=== PATIENT | female | born 1960 | race Caucasian/White ===

== ENCOUNTER 2021-02-05 04:35 | Observation (INO) | payer OTHER, SELFPAY ==
[~2021-02-05] VITALS: Ht 162.6 cm; Wt 78.0 kg
[2021-02-05 04:42] VITALS: BP 155/85
--- NOTE | 2021-02-05 04:42 | NUR ---
TO BED AMBULATORY
--- NOTE | 2021-02-05 04:50 | NUR ---
60 Y/O F BIB SELF C/O CRUSHING/STABBING CHEST PAIN 5/10 RADIATING TO NECK UP TO THE R EAR. PT AAOX4 AND AMBULATORY. PT DENIES ANY OTHER PAIN OR DISCOMFORT. PT HOOKED TO MONITORS, VS STABLE. WILL CONTINUE TO MONITOR. PMH: LUNG CA NKA
[2021-02-05] MEDS ORDERED: ASPIRIN 325 MG TAB PO ONE (05:00)
--- NOTE | 2021-02-05 05:00 | NUR ---
ERMD AT BEDSIDE
[2021-02-05 05:21] LABS: BASOPHILS % (AUTO) 0.4 % (0.0-2.0); EOSINOPHILS # (AUTO) 0.2 K/uL (0-0.4); EOSINOPHILS % (AUTO) 3.3 % (0.0-4.0); HEMATOCRIT 40.5 % (36-48); HEMOGLOBIN 13.6 g/dL (12.0-16.0); LYMPHOCYTES % (AUTO) 14.2 % (20.5-51.1); MEAN CORPUSCULAR HEMOGLOBIN 30 pg (27-31); MEAN CORPUSCULAR HGB CONC 34 g/dL (33-37); MEAN CORPUSCULAR VOLUME 90.4 fL (80-94); MONOCYTES # (AUTO) 0.7 K/uL (0.8-1.0); MONOCYTES % (AUTO) 9.8 % (1.7-9.3); NEUTROPHILS % (AUTO) 72.3 % (42.2-75.2); PLATELET COUNT (AUTO) 269 K/uL (140-450); RED BLOOD CELL COUNT(AUTO) 4.48 MIL/uL (4.20-5.40); RED CELL DISTRIBUTION WIDTH 14.3 % (11.6-13.7); WHITE BLOOD COUNT (AUTO) 6.9 K/uL (4.8-10.8)
[2021-02-05] MEDS ORDERED: NITROGLYCERIN 0.4 MG TAB SL ONE (05:25)
[2021-02-05 05:40] LABS: PROTHROMBIN TIME 9.3 secs (10.8-13.4)
[2021-02-05 05:43] LABS: ALBUMIN 3.6 g/dL (3.4-5.0); ANION GAP 9.7 (8-16); CREATININE 0.8 mg/dL (0.6-1.3); POTASSIUM 3.7 mmol/L (3.5-5.1); TOTAL BILIRUBIN 0.2 mg/dL (0.0-1.0)
[2021-02-05] MEDS ORDERED: HYDROCORTISONE NA SUCC 100 MG/2 ML VIAL IV ONE (05:50)
[2021-02-05] MEDS ORDERED: diphenhydrAMINE 50 MG/ML VIAL IVP ONE (05:50)
--- NOTE | 2021-02-05 06:50 | NUR ---
US AT BEDSIDE
--- NOTE | 2021-02-05 07:09 | NUR ---
ENDORSED TO DAY SHIFT NURSE FOR CONTINUITY OF CARE
[2021-02-05] MEDS ORDERED: OSIM40TA PO (07:23)
--- NOTE | 2021-02-05 07:32 | NUR ---
ANALISA SWAB COLLECTED AND SENT TO LAB.
[2021-02-05] MEDS ORDERED: LORazepam 1 MG TAB PO PRN (08:40)
[2021-02-05] MEDS ORDERED: KCL 20 MEQ/WATER INJ PREMIX 200 ML IV PRN (08:40)
[2021-02-05] MEDS ORDERED: MAGNESIUM OXIDE 400 MG TAB PO PRN (08:40)
[2021-02-05] MEDS ORDERED: MAG SULF 2000 MG/WATER PREMIX 50 ML IV PRN (08:40)
[2021-02-05] MEDS ORDERED: ACETAMINOPHEN 325 MG TAB PO PRN (08:40)
[2021-02-05] MEDS ORDERED: POTASSIUM CHLORIDE 10 MEQ TABER PO PRN (08:40)
[2021-02-05] MEDS ORDERED: MORPHINE SULFATE 4 MG/ML SYR IVP PRN (08:40)
[2021-02-05] MEDS ORDERED: ONDANSETRON 4 MG/2 ML VIAL IVP PRN (08:40)
[2021-02-05] MEDS ORDERED: HYDROcodone/APAP 5/325 MG 1 TAB TAB PO PRN (08:40)
[2021-02-05] MEDS: DOCUSATE SODIUM 100 MG GELCAP PO SCH (09:16)
--- NOTE | 2021-02-05 12:40 | NUR ---
PT STATED SHE WOULD LIKE TO LEAVE AMA, PT STATES "I WANT TO SPEAK WITH THE DR BECAUSE I WANT TO GO HOME, I FEEL MORE SICK BEING HERE AND I WANT TO BE COMFORTABLE AT HOME. CHARGE NURSE MADE AWARE.
[2021-02-05 13:15] VITALS: BP 127/65
--- NOTE | 2021-02-05 13:15 | NUR ---
RECEIVED REPORT FROM ER NURSE FOR CONTINUITY OF CARE. PATIENT BROUGHT TO THE FLOOR BY MAXIME, PATIENT DENIES PAIN OR DISCOMFORT AT THIS TIME. V/S CHECKED. RESPIRATORY EVEN UNLABORED ON ROOM AIR. ON TELE MONITOR. IV TO LEFT AC 20G SL. SKIN INTACT, DRY AND WARM TO TOUCH. ORIENT PATIENT TO THE ROOM, CALL LIGHT AND HOSPITAL ENVIRONMENT. MRSA NARES SWAB COLLECTED. SAFETY MEASURES IN PLACE, WILL CONTINUE TO MONITOR.
--- NOTE | 2021-02-05 13:15 | NUR ---
Patient will be admitted to care of DAVID RONQUILLO. Admited to TELEMETRY. Will go to room 119B. Belongings list completed. Report to CECILIA BAKER.
--- NOTE | 2021-02-05 13:25 | NUR ---
WATER, APPLE JUICE AND SANDWICH PROVIDED. PATIENT DENIES CHEST PAIN AT THIS TIME. WILL CONTINUE TO MONITOR.
--- NOTE | 2021-02-05 15:45 | NUR ---
DC PLANN[age] YRS OLD FEMALE PATIENT WAS ADMITTED FROM HOME WITH ADX OF CHEST PAIN R/O ACS. PT HAS A HX OF LUNG CA. CXR SHOWED MILDLY PROMINENT INTERSTITIAL MARKINGS. CT CHSE ABD/PELVIS SHOWED NO PE, NO ACUTE CARDIOPULMONARY DISEASE LYTIC LESION IN THE RIGHT ACETABULUM MEDIALLY. RAPID COVID TEST NEGATIVE. ADMINISTER ACS PROTOCOL AND CONTINUED HOME MEDS. CONSULTED WITH DATABASE REPORT WRITER. DC PLAN TO GO HOME WHEN STABLE CM TO FOLLOW.
[2021-02-05 16:00] VITALS: BP 114/60
--- NOTE | 2021-02-05 18:12 | NUR ---
PATIENT SITTING AT THE SIDE OF BED, HAVING DINNER, DENIES PAIN OR DISCOMFORT AT THIS TIME. WILL CONTINUE TO MONITOR.
--- NOTE | 2021-02-05 19:30 | NUR ---
ENDORSED PATIENT TO DYNAMICS AX TECHNICAL ARCHITECT RN FOR CONTINUITY OF CARE, PATIENT IN STABLE CONDITION DENIES ANY PAIN.
--- NOTE | 2021-02-05 19:30 | NUR ---
PT AWAKE ALERT ORIENTED X4 SITTING UP IN BED. AMBULATORY. NSR 80-90S, LUNGS CLEAR TO UPPER LOBES, DIMINISHED @ BASES, DENIES CP/SOB. ABD SOFT, NON DISTENDED. ACTIVE BOWEL SOUNDS. VOIDS IN BATHROOM, URINE NOTED. SKIN INTACT. IV TO L AC 20 G IVF INFUSING, PATENT. BED LOCKED IN LOWEST POSITION. SAFETY PRECAUTIONS IN PLACE. WILL CONTINUE TO OBSERVE.
[2021-02-05 20:00] VITALS: BP 100/55
[2021-02-06] VITALS: BP 110/81
--- NOTE | 2021-02-06 00:30 | NUR ---
PT HAS EYES CLOSED; AROUSABLE. NO ACUTE DISTRESS NOTED. WILL CONTINUE TO OBSERVE.
[2021-02-06 04:00] VITALS: BP 108/60
--- NOTE | 2021-02-06 05:35 | NUR ---
PT AROUSABLE, DENIES PAIN. NO ACUTE DISTRESS WILL CONTINUE TO OBSERVE
[2021-02-06 05:40] LABS: ALBUMIN 3.3 g/dL (3.4-5.0); ANION GAP 7.7 (8-16); CARBON DIOXIDE 30.8 mmol/L (21-32); CHOL/HDL RATIO 4.2 (1-4.5); CREATININE 0.7 mg/dL (0.6-1.3); MAGNESIUM 2.2 mg/dL (1.8-2.4); POTASSIUM 3.5 mmol/L (3.5-5.1); TOTAL BILIRUBIN 0.3 mg/dL (0.0-1.0)
[2021-02-06 06:08] LABS: BASOPHILS % (AUTO) 0.4 % (0.0-2.0); EOSINOPHILS # (AUTO) 0.2 K/uL (0-0.4); EOSINOPHILS % (AUTO) 4.1 % (0.0-4.0); HEMATOCRIT 39.1 % (36-48); LYMPHOCYTES # (AUTO) 1.1 K/uL (2.5-16.5); LYMPHOCYTES % (AUTO) 23.8 % (20.5-51.1); MEAN CORPUSCULAR HEMOGLOBIN 30 pg (27-31); MEAN CORPUSCULAR HGB CONC 33 g/dL (33-37); MEAN CORPUSCULAR VOLUME 91.3 fL (80-94); MONOCYTES # (AUTO) 0.5 K/uL (0.8-1.0); MONOCYTES % (AUTO) 11.8 % (1.7-9.3); NEUTROPHILS # (AUTO) 2.8 K/uL (1.8-7.7); NEUTROPHILS % (AUTO) 59.9 % (42.2-75.2); PLATELET COUNT (AUTO) 263 K/uL (140-450); RED BLOOD CELL COUNT(AUTO) 4.28 MIL/uL (4.20-5.40); RED CELL DISTRIBUTION WIDTH 14.4 % (11.6-13.7); WHITE BLOOD COUNT (AUTO) 4.6 K/uL (4.8-10.8)
--- NOTE | 2021-02-06 07:30 | NUR ---
REPORT GIVEN TO DAY SHIFT FOR CONTINUITY OF CARE.
--- NOTE | 2021-02-06 07:35 | NUR ---
RECEIVED PATIENT FROM NIGHT NURSE. PATIENT IN BED AWAKE AND ALERT. RESP EVEN AND UNLABORED ON ROOM AIR. DENIED OF PAIN AT THIS TIME. LAC 20G SL. PLAN OF CARE DISCUSSED. PATIENT VERBALIZED UNDERSTANDING. CALL LIGHT WITHIN REACH. WILL CONTINUE TO MONITOR.
[2021-02-06 08:00] VITALS: BP 105/46
--- NOTE | 2021-02-06 08:46 | NUR ---
PATIENT HAS BEEN SCREENED AND CATEGORIZED LOW NUTRITION RISK. PATIENT WILL BE SEEN WITHIN 7 DAYS OF ADMISSION. 02/11/[address]
[2021-02-06] MEDS: DOCUSATE SODIUM 100 MG GELCAP PO SCH (09:07)
--- NOTE | 2021-02-06 09:10 | NUR ---
PATIENT BY BEDSIDE EATING BREAKFAST. MORNING ROUTINE MEDICATIONS GIVEN. PATIENT TOLERATED WELL. RESP EVEN AND UNLABORED ON ROOM AIR. DENIED OF PAIN AT THIS TIME. LAC 20G INTACT AND PATENT. ENCOURAGED TO USE CALL LIGHT FOR ASSIST. PATIENT VERBALIZED UNDERSTANDING. WILL CONTINUE TO MONITOR
--- NOTE | 2021-02-06 10:30 | NUR ---
SOCIAL WORK NOTE: Patient's Orientation Unable To Assess Information Provided By DARIA TAMAYO - DAUGHTER Comments SW WAS UNABLE TO MEET PATIENT AT BEDSIDE. SW COMPLETED ASSESSMENT WITH PATIENT'S DAUGHTER. Chain Repairer, Realtionship and Phone Number DARIA TAMAYO DAUGHTER [phone] Healthcare Power of [employer] [place] No Does Patient Have a POLST No Identifying Problems No Social Work Triggers Is A Social Work Consult Needed No Mandate Report Filed No Explanation Of Identifying Problems PATIENT IS A 60-YEAR-OLD FEMALE ADMITTED FOR CHEST PAIN AND R/O ACS. PATIENT HAS PMHX OF LUNG CANCER, AND METASTASIS TO BONE. DAUGHTER REPORTED NO HX OF MENTAL HEALTH OR SUBSTANCE ABUSE. Admitted From Home Pre-Admission Level Of Functioning Status Independent/Ambulatory Prior Resources/Services Used In Last 12 Months No Prior Resources Used Prior DME No Prior DME Used Dialysis Comments N/A Living Situation Lives With Family House Patient Had Caregiver No Home Support No Caregiver Issues Financial Issues No Known Financial Issue Referral To The Financial Counselor Needed No Factors/Needs No D/C Needs Identified Pt/Rep Participated In Discharge Plan Yes Patient/Family Agress With Discharge Plan Yes Discharge Plan Comments TENTATIVE DISCHARGE PLAN IS FOR PATIENT TO RETURN HOME. DC Plan Status Initiated
--- NOTE | 2021-02-06 11:35 | NUR ---
PATIENT SITTING BY BEDSIDE WATCHING TV. RESP EVEN AND UNLABORED ON [place] AIR. DENIED OF PAIN AT THIS TIME. CALL LIGHT WITHIN REACH. WILL CONTINUE TO MONITOR.
[2021-02-06 12:00] VITALS: BP 104/72
--- NOTE | 2021-02-06 13:35 | NUR ---
PATIENT IN BED SLEEPING, CHEST NOTED RISING. CALL LIGHT WITHIN REACH. WILL CONTINUE TO MONITOR.
[2021-02-06 14:46] VITALS: BP 104/72
--- NOTE | 2021-02-06 15:31 | NUR ---
PATIENT LEFT DISCHARGED HOME WITH FAMILY. DISCHARGE INSTRUCTIONS PROVIDED, PATIENT VERBALIZED UNDERSTANDING. FLU VACC UP TO DATE. PATIENT LEFT WITH ALL PERSONAL BELONGINGS. PATIENT LEFT IN STABLE CONDITION.
== END 2021-02-06 15:30 | disposition home or self-care (01) ==
LOC: MED 04:35 → MTU 08:36 → INTOOBSV 08:36 → MTU 13:05
PROVIDERS: ADMIT Hospitalist; ATTEND Hospitalist
DX: R07.89 Other chest pain (principal); Z20.822 Contact with and (suspected) exposure to COVID-19; C34.90 Malignant neoplasm of unspecified part of unspecified bronchus or lung; C79.51 Secondary malignant neoplasm of bone; R03.0 Elevated blood-pressure reading, without diagnosis of hypertension; Z90.710 Acquired absence of both cervix and uterus; Z92.21 Personal history of antineoplastic chemotherapy; Z92.3 Personal history of irradiation
CPT/HCPCS: 36415; 71045; 71275; 74174; 80053; 80061; 83036; 83735; 84484; 85025; 85610; 85730; 87081; 87426; 93005; 93880; 96372; 96374; 96375; 99291; G0378; J1200; J1644; J1720; Q9967

== ENCOUNTER 2022-01-23 09:11 | Day surgery (SDC) | payer OTHER, SELFPAY ==
[~2022-01-23] VITALS: Ht 162.6 cm; Wt 72.6 kg
[~2022-01-23 09:11] MED LIST: OSIM40TA PO
[2022-01-23] MEDS ORDERED: MIDAZOLAM 5 MG/5 ML VIAL ONE (10:03)
[2022-01-23] MEDS ORDERED: diphenhydrAMINE 50 MG/ML VIAL ONE (10:03)
[2022-01-23] MEDS ORDERED: fentaNYL citrate 0.05 MG/ML VIAL ONE ×2 (10:03→10:16)
[2022-01-23] MEDS ORDERED: LIDOCAINE 2% 100 MG/5 ML UJET TP ONE (10:04)
[2022-01-23] MEDS ORDERED: fentaNYL citrate 0.05 MG/ML VIAL IVP ONE (16:10)
[2022-01-23] MEDS ORDERED: MIDAZOLAM 2 MG/2 ML VIAL IVP ONE (16:10)
== END 2022-01-23 12:50 | disposition home or self-care (01) ==
LOC: MOR 09:11 → MMU 09:12 → MOR 12:50
PROVIDERS: ATTEND Internal Medicine Gastroenterology
DX: Z12.11 Encounter for screening for malignant neoplasm of colon (principal); K62.5 Hemorrhage of anus and rectum; Z85.118 Personal history of other malignant neoplasm of bronchus and lung; Z90.710 Acquired absence of both cervix and uterus; Z79.899 Other long term (current) drug therapy
CPT/HCPCS: 45378; 87426; J2250; J3010; J1200